=== PATIENT | female | born 1960 | race Caucasian/White ===

== ENCOUNTER 2021-05-07 19:48 | Inpatient (IN) | payer OTHER ==
[2021-05-07] VITALS (75 sets, daily range): O2SAT 77–95
[~2021-05-07] VITALS: Ht 170.2 cm; Wt 66.0 kg
--- NOTE | 2021-05-07 21:07 | NUR ---
PATIENT ARRIVED TO UNIT VIA AIR EVAC WITH 2 ATTENDANTS, TRANSFERRED TO BED WITH 5 PERSON ASSIST, PLACED ON FACILITY VENT AND ADJUSTMENTS BEING MADE BY RT WITH A JASEN ZURITA PRESENT AT BEDSIDE, ORDERS BEING PLACE NOTED PATIENT HAS LING CATHETER IN PLACE WELL OG IN PLACE AT 58 CM FROM LIP TO END OF TUBE, TWO PERIPHERAL IV'S PRESENT TO BILATERAL ARMS, NOTIFIED DR. HAYWOOD FOR INSERTION OF CENTRAL CAATHETER IV, CONSENT OBTAINED VIA PHONE FROM YAMIL, WITH SECOND NURSE WITNESS. ASSESSMENT COMPLETED, LABS OBTAINED AND MEDICATIONS INITIATED ORDERED
--- NOTE | 2021-05-07 22:00 | NUR ---
TITRATION OF SEDATION TO ACHIEVE RASS OF -2
[2021-05-07 22:08] LABS: HEMATOCRIT 37.2 % (37.0-47.0); HEMOGLOBIN 11.9 g/dl (12.5-16.0); MEAN CELL VOLUME 92 fl (80.0-100.0); MEAN CORPUSCULAR HEMOGLOBIN 29 pg (27.0-31.0); MEAN CORPUSCULAR HGB CONC 32 g/dl (33.0-37.0); PLATELET COUNT 162 K/mm3 (130-400); RED BLOOD COUNT 4.06 M/mm3 (4.10-5.30); REDCELL DISTRIBUTION WIDTH-CV 13.3 % (11.5-14.5)
[2021-05-07 22:17] LABS: INR 2.2 (0.8-3.0); PROTHROMBIN TIME 24.4 SECONDS (9.7-12.8)
[2021-05-07 22:19] LABS: PARTIAL THROMBOPLASTIN TIME 32.7 SECONDS (26.0-37.0)
[2021-05-07 22:20] LABS: ARTERIAL BLD GAS O2 SATURATION 93.8 % (92-100); ARTERIAL BLD GAS TCO2 CT 19.2; ARTERIAL BLOOD GAS BASE EXCESS -9.9 (-2-2); ARTERIAL BLOOD GAS HCO3 17.8 meq/L (22-26); ARTERIAL BLOOD GAS PCO2 46.1 mmHg (35-45); ARTERIAL BLOOD GAS PO2 84.7 mmHg (80-100); ARTERIAL BLOOD GAS pH 7.21 (7.35-7.45)
[2021-05-07 22:38] LABS: BAND 7 % (0-10); C-REACTIVE PROTEIN 25.9 mg/dL (0.00-0.50); CALCIUM 8.3 mg/dL (8.4-10.2); CREATININE, serum 0.8 mg/dL (0.57-1.11); LYMPHOCYTE 3 % (20.0-51.0); METAMYELOCYTE 3 % (0-0); NEUTROPHILS 86 % (42.0-75.2); PLATELET ESTIMATE NORMAL (NORMAL); POTASSIUM 4.6 mmol/L (3.5-4.5); TOTAL PROTEIN 5.9 gm/dL (6.2-8.1)
[2021-05-07 22:47] LABS: TROPONIN-I 0.14 ng/mL (0.00-0.033)
[2021-05-07] MEDS ORDERED: ZOCOR 40MG40 MG PO (23:49)
[2021-05-07] MEDS ORDERED: PROTONIX 40MG T40 MG PO (23:49)
[2021-05-08] VITALS (671 sets, daily range): BP systolic 82–118; BP diastolic 49–71; PULSE 69–102; TEMP 97–99.7; O2SAT 85–100
--- NOTE | 2021-05-08 00:30 | NUR ---
PATIENT PLACED IN PRONE POSITION WITH 5 PERSON ASSIST
--- NOTE | 2021-05-08 02:30 | NUR ---
CRITICAL TROPONIN LEVEL CALLED TO Belén ZURITA APRN WITH NO NEW ORDERS AT THIS TIME
[2021-05-08 03:21] LABS: ARTERIAL BLD GAS O2 SATURATION 95.6 % (92-100); ARTERIAL BLD GAS TCO2 CT 21.4; ARTERIAL BLOOD GAS BASE EXCESS -2.8 (-2-2); ARTERIAL BLOOD GAS HCO3 20.4 meq/L (22-26); ARTERIAL BLOOD GAS PCO2 31.1 mmHg (35-45); ARTERIAL BLOOD GAS PO2 74.3 mmHg (80-100); ARTERIAL BLOOD GAS pH 7.44 (7.35-7.45)
[2021-05-08 06:01] LABS: BASO % 0.2 % (0.0-2.0); GRAN # 14.5 (1.4-6.5); GRAN % 84.9 % (42.2-75.2); HEMOGLOBIN 10.4 g/dl (12.5-16.0); LYMPH # 0.8 (1.2-3.4); LYMPH % 4.6 % (20.0-51.0); MEAN CELL VOLUME 88 fl (80.0-100.0); MEAN CORPUSCULAR HEMOGLOBIN 30 pg (27.0-31.0); MEAN CORPUSCULAR HGB CONC 34 g/dl (33.0-37.0); MEAN PLATELET VOLUME 10.9 fl (7.4-10.4); MONO # 0.5 (0.1-0.6); MONO % 2.9 % (1.7-9.3); PLATELET COUNT 142 K/mm3 (130-400); RED BLOOD COUNT 3.49 M/mm3 (4.10-5.30); REDCELL DISTRIBUTION WIDTH-CV 13.5 % (11.5-14.5)
--- NOTE | 2021-05-08 06:23 | NUR ---
PATIENT RESTING COMFORTABLY AT THIS TIME, TITRATION OF SEDATION MEDICATIONS NEEDED, PATIENT EASILY AWAKENS, APPEARS TO UNDERSTAND WHAT IS BEING SAID TO HER, LABS OBTAINED ORDERED AND SENT FOR PROCESSING
[2021-05-08 06:33] LABS: CALCIUM 8.7 mg/dL (8.4-10.2); CREATININE, serum 0.65 mg/dL (0.57-1.11); MAGNESIUM 2.3 mg/dL (1.6-2.6); PHOSPHOROUS 3.3 mg/dL (2.3-4.7); POTASSIUM 4.6 mmol/L (3.5-4.5)
[2021-05-08 06:41] LABS: HEMATOCRIT 30.8 % (37.0-47.0)
[2021-05-08 06:45] LABS: TROPONIN-I 6 HR POST INITIAL 0.297 ng/mL (0.00-0.033)
--- NOTE | 2021-05-08 07:00 | NUR ---
Recieved report from LUCAS Lima - pt in the prone position, right side up.
--- NOTE | 2021-05-08 10:30 | NUR ---
Pt un-proned without difficulty with 4 total staff memebers
--- NOTE | 2021-05-08 11:50 | NUR ---
Pt's Raul and brother Hunter updated on telephone. MD Doris provided with Layne phone number: [phone]
[2021-05-08 12:41] LABS: ARTERIAL BLOOD GAS BASE EXCESS -3.1 (-2-2); ARTERIAL BLOOD GAS HCO3 25.2 meq/L (22-26); ARTERIAL BLOOD GAS PCO2 58.7 mmHg (35-45); ARTERIAL BLOOD GAS PO2 113.5 mmHg (80-100); ARTERIAL BLOOD GAS pH 7.25 (7.35-7.45)
--- NOTE | 2021-05-08 14:00 | NUR ---
1315: BP:85/50(60), RASS:-3 - -4, all sedation paused 1325: pt able to open eyes, follow all commands and move all extremities with equal strength, non-verbally pt able to communicate no pain and that room tempature is satisfactory. 1340: pt coughing, interrupting ventilations tipping low priorty ventilator alarms, SpO2 decreased from 96-98% to 90-91% - sedation resumed MD Doris notified - no futher orders
[2021-05-08 17:24] LABS: ARTERIAL BLD GAS O2 SATURATION 97.8 % (92-100); ARTERIAL BLD GAS TCO2 CT 23.9; ARTERIAL BLOOD GAS BASE EXCESS -0.9 (-2-2); ARTERIAL BLOOD GAS HCO3 22.8 meq/L (22-26); ARTERIAL BLOOD GAS PCO2 34.7 mmHg (35-45); ARTERIAL BLOOD GAS PO2 109.5 mmHg (80-100); ARTERIAL BLOOD GAS pH 7.44 (7.35-7.45)
[2021-05-09] VITALS (670 sets, daily range): BP systolic 104–122; BP diastolic 53–66; PULSE 60–87; TEMP 97.5–99; O2SAT 85–100
[2021-05-09 04:04] LABS: ARTERIAL BLD GAS O2 SATURATION 98.2 % (92-100); ARTERIAL BLD GAS TCO2 CT 24.8; ARTERIAL BLOOD GAS BASE EXCESS -0.4 (-2-2); ARTERIAL BLOOD GAS HCO3 23.7 meq/L (22-26); ARTERIAL BLOOD GAS PCO2 36.8 mmHg (35-45); ARTERIAL BLOOD GAS PO2 118.4 mmHg (80-100); ARTERIAL BLOOD GAS pH 7.43 (7.35-7.45)
[2021-05-09 04:37] LABS: HEMOGLOBIN 10.2 g/dl (12.5-16.0); MEAN CELL VOLUME 89 fl (80.0-100.0); MEAN CORPUSCULAR HEMOGLOBIN 29 pg (27.0-31.0); MEAN CORPUSCULAR HGB CONC 33 g/dl (33.0-37.0); MEAN PLATELET VOLUME 10.8 fl (7.4-10.4); RED BLOOD COUNT 3.48 M/mm3 (4.10-5.30); REDCELL DISTRIBUTION WIDTH-CV 13.4 % (11.5-14.5)
[2021-05-09 04:40] LABS: PLATELET COUNT 270 K/mm3 (130-400)
[2021-05-09 05:18] LABS: BAND 2 % (0-10); LYMPHOCYTE 5 % (20.0-51.0); METAMYELOCYTE 2 % (0-0); NEUTROPHILS 86 % (42.0-75.2)
[2021-05-09 05:19] LABS: PLATELET ESTIMATE NORMAL (NORMAL)
[2021-05-09 05:24] LABS: CALCIUM 8.7 mg/dL (8.4-10.2); CREATININE, serum 0.69 mg/dL (0.57-1.11); MAGNESIUM 2.2 mg/dL (1.6-2.6); PHOSPHOROUS 2.6 mg/dL (2.3-4.7); POTASSIUM 4.4 mmol/L (3.5-4.5)
--- NOTE | 2021-05-09 07:53 | NUR ---
ORAL CARE ATTEMPTED THROUGHOUT SHIFT, HOWEVER DIFFICULT WHILE PT PRONED.
--- NOTE | 2021-05-09 12:57 | NUR ---
Section Leader And Machine Setter contacted patient's , Raul (ph#[phone]) to complete initial intake as patient is currently intubated and is COVID positive. 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 Raul advised she works out of the [place] office. Patient does not have a current primary care physician. Patient obtains most of her medications from [facility] in [place] or [facility] in [place]. Patient does not use any DME and is independent with ADLS. Patient does not have Advance Directives and her is her legal next of kin. SW will continue to follow for any needs.
[2021-05-10] VITALS (739 sets, daily range): BP systolic 90–121; BP diastolic 43–63; PULSE 55–72; TEMP 97.2–99; O2SAT 89–100
[2021-05-10 04:27] LABS: ARTERIAL BLD GAS O2 SATURATION 97.2 % (92-100); ARTERIAL BLD GAS TCO2 CT 27.6; ARTERIAL BLOOD GAS BASE EXCESS 1.4 (-2-2); ARTERIAL BLOOD GAS HCO3 26.3 meq/L (22-26); ARTERIAL BLOOD GAS PCO2 42.5 mmHg (35-45); ARTERIAL BLOOD GAS PO2 98.2 mmHg (80-100); ARTERIAL BLOOD GAS pH 7.41 (7.35-7.45)
[2021-05-10 05:46] LABS: BASO # 0.1 (0.0-0.2); BASO % 0.3 % (0.0-2.0); EOS % 0.3 % (0-4.0); GRAN # 10.8 (1.4-6.5); GRAN % 73.8 % (42.2-75.2); LYMPH # 1.1 (1.2-3.4); LYMPH % 7.6 % (20.0-51.0); MEAN CORPUSCULAR HGB CONC 32 g/dl (33.0-37.0); MEAN PLATELET VOLUME 10.9 fl (7.4-10.4); MONO # 0.5 (0.1-0.6); MONO % 3.1 % (1.7-9.3); PLATELET COUNT 247 K/mm3 (130-400); RED BLOOD COUNT 2.91 M/mm3 (4.10-5.30); REDCELL DISTRIBUTION WIDTH-CV 13.5 % (11.5-14.5)
[2021-05-10 05:49] LABS: HEMATOCRIT 27.2 % (37.0-47.0); HEMOGLOBIN 8.8 g/dl (12.5-16.0); MEAN CELL VOLUME 94 fl (80.0-100.0); MEAN CORPUSCULAR HEMOGLOBIN 30 pg (27.0-31.0)
[2021-05-10 06:02] LABS: C-REACTIVE PROTEIN 5.1 mg/dL (0.00-0.50); CALCIUM 7.5 mg/dL (8.4-10.2); CREATININE, serum 0.55 mg/dL (0.57-1.11); PHOSPHOROUS 1.9 mg/dL (2.3-4.7); POTASSIUM 3.8 mmol/L (3.5-4.5)
--- NOTE | 2021-05-10 06:09 | NUR ---
SEDATION VACATION NOT NEEDED PATIENT WAKENS EASILY AND ABLE TO NOD HEAD APPROPRIATELY MAKE MEANINGFUL GESTURES, FOLLOW COMMANDS AND MOVE ALL EXTREMITIE
--- NOTE | 2021-05-10 09:23 | NUR ---
ASSISTED RN AND PT WITH UN PRONING PATIENT, POST UNPRONE PATIENT ET STILL IN PLACE AND BILATERAL BREATH SOUNDS SEEN.
--- NOTE | 2021-05-10 16:34 | NUR ---
Sedation Vacation: pt able to open eyes, move all extremities and follow all commands - pt fairly oriented despite situation - pt nodding head in agreement with plan of care and nonverbally denies any needs
[2021-05-11] VITALS (697 sets, daily range): BP systolic 98–123; BP diastolic 47–65; PULSE 49–69; TEMP 97.6–98.8; O2SAT 64–100
[2021-05-11 04:26] LABS: MEAN CELL VOLUME 92 fl (80.0-100.0); MEAN CORPUSCULAR HGB CONC 32 g/dl (33.0-37.0); MEAN PLATELET VOLUME 10.8 fl (7.4-10.4); PLATELET COUNT 268 K/mm3 (130-400); RED BLOOD COUNT 3.11 M/mm3 (4.10-5.30); REDCELL DISTRIBUTION WIDTH-CV 13.4 % (11.5-14.5)
[2021-05-11 04:39] LABS: HEMATOCRIT 28.7 % (37.0-47.0); HEMOGLOBIN 9.2 g/dl (12.5-16.0); MEAN CORPUSCULAR HEMOGLOBIN 30 pg (27.0-31.0)
[2021-05-11 04:49] LABS: C-REACTIVE PROTEIN 4.9 mg/dL (0.00-0.50); MAGNESIUM 2.2 mg/dL (1.6-2.6); PHOSPHOROUS 2.2 mg/dL (2.3-4.7)
[2021-05-11 05:03] LABS: ALBUMIN 1.7 gm/dL (3.5-5.0); BILIRUBIN,TOTAL 0.4 mg/dL (0.2-1.2); CREATININE, serum 0.54 mg/dL (0.57-1.11); POTASSIUM 4.2 mmol/L (3.5-4.5); TOTAL PROTEIN 5.2 gm/dL (6.2-8.1)
[2021-05-11 05:28] LABS: BAND 3 % (0-10); LYMPHOCYTE 10 % (20.0-51.0); METAMYELOCYTE 3 % (0-0); NEUTROPHILS 80 % (42.0-75.2)
[2021-05-11 05:29] LABS: PLATELET ESTIMATE NORMAL (NORMAL)
--- NOTE | 2021-05-11 05:33 | NUR ---
PATIENT EASILY AWAKENS ON CURRENT AMOUNT OF SEDATION
[2021-05-11 07:15] LABS: ARTERIAL BLD GAS O2 SATURATION 96.7 % (92-100); ARTERIAL BLD GAS TCO2 CT 32.3; ARTERIAL BLOOD GAS BASE EXCESS 6.1 (-2-2); ARTERIAL BLOOD GAS HCO3 30.9 meq/L (22-26); ARTERIAL BLOOD GAS PO2 91.8 mmHg (80-100); ARTERIAL BLOOD GAS pH 7.45 (7.35-7.45)
--- NOTE | 2021-05-11 07:45 | NUR ---
Patient resting comfortably. Arouses easily to speech and able to follow basic commands upon request. Will continue to monitor.
--- NOTE | 2021-05-11 10:33 | NUR ---
ASSISTED TRANSPORTING PATIENT TO SAFE DEPOSIT CLERK AT 1015, ET STILL 23@TEETH AND RECEIVING ADEQUATE VT.
--- NOTE | 2021-05-11 11:15 | NUR ---
Returned from sleep lab technologist; VS stable. Right radial site assessed and no complications observed at this time.
--- NOTE | 2021-05-11 11:28 | NUR ---
ASSISTED CAP MACHINE OPERATOR WITH TRANSPORTING PATIENT BACK TO THEIR ROOM.
--- NOTE | 2021-05-11 13:45 | NUR ---
Approximately 10 minutes after removing 3 ml of air from TR band. Slight amount of new blody drainage was noted around the site. Pulse +2 and wrist and arm soft to touch with no signs of a hematoma formation. 3 ml placed back in TR band. Will continue to monitor.
--- NOTE | 2021-05-11 17:30 | NUR ---
Sedation vacation not performed due to being proned.
--- NOTE | 2021-05-11 17:30 | NUR ---
Patient re-proned; tolerated well. Will continue to monitor.
--- NOTE | 2021-05-11 22:38 | NUR ---
PATIENT RESTING IN BED, TR BAND DECREASED BY 1 ML WHICH DEFLATED CUFF, NO ADVERSE REACTION NOTED, NO BLLEDING OR HEMATOMA NOTED, TR BAND REMOVED, AND BANDAID APPLIED PER ORDER, WILL CONTINUE TO MONITOR, PT IS INTUBATED AND SEDATED AT THIS TIME
[2021-05-12] VITALS (655 sets, daily range): BP systolic 102–111; BP diastolic 50–62; PULSE 51–60; TEMP 97.6–99.6; O2SAT 83–100
[2021-05-12 04:45] LABS: ARTERIAL BLD GAS O2 SATURATION 96.8 % (92-100); ARTERIAL BLD GAS TCO2 CT 30.3; ARTERIAL BLOOD GAS BASE EXCESS 5.1 (-2-2); ARTERIAL BLOOD GAS HCO3 29.1 meq/L (22-26); ARTERIAL BLOOD GAS PCO2 40.6 mmHg (35-45); ARTERIAL BLOOD GAS PO2 94.5 mmHg (80-100); ARTERIAL BLOOD GAS pH 7.47 (7.35-7.45)
[2021-05-12 05:37] LABS: MEAN CELL VOLUME 92 fl (80.0-100.0); MEAN CORPUSCULAR HGB CONC 32 g/dl (33.0-37.0); MEAN PLATELET VOLUME 11.1 fl (7.4-10.4); PLATELET COUNT 263 K/mm3 (130-400); RED BLOOD COUNT 2.91 M/mm3 (4.10-5.30); REDCELL DISTRIBUTION WIDTH-CV 13.3 % (11.5-14.5)
[2021-05-12 05:40] LABS: HEMATOCRIT 26.9 % (37.0-47.0); HEMOGLOBIN 8.7 g/dl (12.5-16.0); MEAN CORPUSCULAR HEMOGLOBIN 30 pg (27.0-31.0)
[2021-05-12 05:50] LABS: CALCIUM 7.7 mg/dL (8.4-10.2); CREATININE, serum 0.52 mg/dL (0.57-1.11); MAGNESIUM 2.1 mg/dL (1.6-2.6); PHOSPHOROUS 2.7 mg/dL (2.3-4.7); POTASSIUM 4.2 mmol/L (3.5-4.5)
[2021-05-12 05:58] LABS: BAND 3 % (0-10); EOSINOPHIL 1 % (0-4); LYMPHOCYTE 8 % (20.0-51.0); METAMYELOCYTE 3 % (0-0); MYELOCYTE 7 % (0-0); NEUTROPHILS 76 % (42.0-75.2); PLATELET ESTIMATE NORMAL (NORMAL)
[2021-05-12 05:59] LABS: HYPOCHROMIA 2+
--- NOTE | 2021-05-12 06:00 | NUR ---
PATIENT AWAKENS EASILY TO MINIMAL STIMULI ON CURRENT SEDATION NO NEED FOR SEDATION VACATION
--- NOTE | 2021-05-12 06:05 | NUR ---
PATIENT CONTINUES WITH NO ADVERSES REACTIONS POST CARDIAC CATH, RT RADIAL ACCESS SITE REMAINS UNCHANGED WITH NO ACTIVE BLEEDING NO EDEMA AND NO NOTED HEMATOMA, WILL CONTINUE TO MONITOR
--- NOTE | 2021-05-12 07:30 | NUR ---
REPORT RECEIVED FROM LUCAS GARCIA
--- NOTE | 2021-05-12 10:15 | NUR ---
, YAMIL, GIVEN UPDATE AND QUESTIONS ANSWERED.
--- NOTE | 2021-05-12 11:43 | NUR ---
Asp Developer spoke with patient's spouse, Raul who would like to video chat with patient if possible. SW contacted [place], ICU Beamer Helper and provided Raul's email ([email or web address]).
--- NOTE | 2021-05-12 15:28 | NUR ---
REPORT GIVEN TO LUCAS MICHEL
--- NOTE | 2021-05-12 15:30 | NUR ---
ASSUMED CARE FROM LUCAS HERNANDEZ.
--- NOTE | 2021-05-12 17:00 | NUR ---
PT PRONED AT THIS TIME WITH RN X2 AND RT. PT TOLERATED WELL. VSS. NO CHANGES IN VENT SETTINGS. OGT AND ETT REMAIN AT SAME PLACES BEFORE.
[2021-05-13] VITALS (628 sets, daily range): BP systolic 98–120; BP diastolic 52–65; PULSE 48–61; TEMP 97.8–98.8; O2SAT 80–100
--- NOTE | 2021-05-13 05:00 | NUR ---
No sedation vacation at this time. Patient awake and moving self on bed. Encouraged to relax and lay head down. Follows commands for the most part, does need a lot of encouragement to lay head down but eventually will. Will monitor for increase of sedation need
[2021-05-13 05:32] LABS: ARTERIAL BLD GAS O2 SATURATION 97.7 % (92-100); ARTERIAL BLD GAS TCO2 CT 31.7; ARTERIAL BLOOD GAS BASE EXCESS 5.9 (-2-2); ARTERIAL BLOOD GAS HCO3 30.4 meq/L (22-26); ARTERIAL BLOOD GAS PO2 101.7 mmHg (80-100); ARTERIAL BLOOD GAS pH 7.46 (7.35-7.45)
[2021-05-13 06:05] LABS: MEAN CELL VOLUME 93 fl (80.0-100.0); MEAN CORPUSCULAR HGB CONC 32 g/dl (33.0-37.0); MEAN PLATELET VOLUME 11.2 fl (7.4-10.4); PLATELET COUNT 252 K/mm3 (130-400); RED BLOOD COUNT 2.82 M/mm3 (4.10-5.30); REDCELL DISTRIBUTION WIDTH-CV 13.2 % (11.5-14.5)
[2021-05-13 06:12] LABS: HEMATOCRIT 26.1 % (37.0-47.0); HEMOGLOBIN 8.4 g/dl (12.5-16.0); MEAN CORPUSCULAR HEMOGLOBIN 30 pg (27.0-31.0)
[2021-05-13 06:24] LABS: ALBUMIN 1.7 gm/dL (3.5-5.0); BILIRUBIN,TOTAL 0.4 mg/dL (0.2-1.2); CALCIUM 7.9 mg/dL (8.4-10.2); CREATININE, serum 0.52 mg/dL (0.57-1.11); POTASSIUM 4.1 mmol/L (3.5-4.5); TOTAL PROTEIN 5.2 gm/dL (6.2-8.1)
[2021-05-13 07:21] LABS: BAND 3 % (0-10); LYMPHOCYTE 14 % (20.0-51.0); METAMYELOCYTE 1 % (0-0); MYELOCYTE 3 % (0-0); NEUTROPHILS 77 % (42.0-75.2)
[2021-05-13 07:24] LABS: PLATELET ESTIMATE NORMAL (NORMAL)
[2021-05-13 12:10] LABS: ARTERIAL BLD GAS O2 SATURATION 95.1 % (92-100); ARTERIAL BLOOD GAS HCO3 29.6 meq/L (22-26); ARTERIAL BLOOD GAS PCO2 44.2 mmHg (35-45); ARTERIAL BLOOD GAS PO2 74.7 mmHg (80-100); ARTERIAL BLOOD GAS pH 7.44 (7.35-7.45)
[2021-05-14] VITALS (656 sets, daily range): BP systolic 106–118; BP diastolic 56–64; PULSE 49–56; TEMP 98–99; O2SAT 80–100
[2021-05-14 04:49] LABS: ARTERIAL BLD GAS O2 SATURATION 91.8 % (92-100); ARTERIAL BLD GAS TCO2 CT 33.2; ARTERIAL BLOOD GAS BASE EXCESS 6.8 (-2-2); ARTERIAL BLOOD GAS HCO3 31.8 meq/L (22-26); ARTERIAL BLOOD GAS PCO2 47.6 mmHg (35-45); ARTERIAL BLOOD GAS pH 7.44 (7.35-7.45)
[2021-05-14 06:07] LABS: PATHOLOGY DIFF REVIEW OK +
--- NOTE | 2021-05-14 06:11 | NUR ---
DID NOT DO SEDATION VACATION THIS MORNING PATIENT IS AWAKE ENOUGH TO RESPOND TO QUESTIONS AND FOLLOW COMMANDS
[2021-05-14 06:17] LABS: MEAN CELL VOLUME 94 fl (80.0-100.0); MEAN CORPUSCULAR HGB CONC 32 g/dl (33.0-37.0); MEAN PLATELET VOLUME 11.5 fl (7.4-10.4); PLATELET COUNT 261 K/mm3 (130-400); RED BLOOD COUNT 2.68 M/mm3 (4.10-5.30); REDCELL DISTRIBUTION WIDTH-CV 13.2 % (11.5-14.5)
[2021-05-14 06:26] LABS: HEMATOCRIT 25.2 % (37.0-47.0); MEAN CORPUSCULAR HEMOGLOBIN 30 pg (27.0-31.0)
[2021-05-14 06:32] LABS: CALCIUM 7.8 mg/dL (8.4-10.2); CREATININE, serum 0.53 mg/dL (0.57-1.11); POTASSIUM 4.1 mmol/L (3.5-4.5)
--- NOTE | 2021-05-14 06:51 | NUR ---
PATIENT DID WELL OVERNIGHT, HR SLIGHTLY BRADYCARDIC AT APPROX 50 BPM, BP IN THE 110-120 SYSTOLIC AND 50-60 DIASTOLIC RANGE AND O2 SAT STAYED CONSISTENLY ABOVE 90% AND CURRENTLY SHE IS RESTING COMFORTABLY AND ABLE TO RESPOND TO COMMANDS.
--- NOTE | 2021-05-14 07:00 | NUR ---
pt is intubated and sedated. will conitnue to monitor.
[2021-05-14 07:49] LABS: EOSINOPHIL 1 % (0-4); LYMPHOCYTE 8 % (20.0-51.0); MYELOCYTE 6 % (0-0)
[2021-05-14 07:52] LABS: HYPOCHROMIA 2+
[2021-05-14 07:53] LABS: PLATELET ESTIMATE NORMAL (NORMAL)
[2021-05-14 07:55] LABS: METAMYELOCYTE 5 % (0-0)
[2021-05-14 07:56] LABS: BAND 5 % (0-10); NEUTROPHILS 70 % (42.0-75.2)
--- NOTE | 2021-05-14 13:12 | NUR ---
SPOKE WITH AND OK TO TAKE OUT OF AIRBORNE ISOLATION FOR COVID. STILL PENDING CDIFF TEST AND WILL CONITNUE CONTACT UNTIL TEST BACK.
[2021-05-14 13:36] LABS: CLOSTRIDIUM DIFF A/B NEG; CLOSTRIDIUM DIFF A/B INTERP No C.diff present
--- NOTE | 2021-05-14 15:26 | NUR ---
VIDEO CHAT WITH PT AND FAMILY. FAMIY UPDATE ON PT MOVING TO ICU 7 AND OUT OF ISOLATION.
--- NOTE | 2021-05-14 16:18 | NUR ---
PT MOVED OUT OF ISOLATION TO ICU ROOM 7. PT PLACE ON NEW BED AND VENT. MONITORS CHANGED. ALL LINES AND PUMPS CLEANED. PT PLACE IN PRONE POSITION PER ORDER. WILL CONTINUE TO [facility].
--- NOTE | 2021-05-14 17:00 | NUR ---
PT IS PRONED. PT ABLE TO OPEN EYES AND FOLLOW SOME COMMANDS. NO SEDATION VACATION AT THIS TIME. WILL CONTINUE TO MONTIOR.
--- NOTE | 2021-05-14 18:09 | NUR ---
REPORT GIVEN TO ESSIE ZAVALA TO ASSUME CARE.
[2021-05-15] VITALS (730 sets, daily range): BP systolic 88–121; BP diastolic 39–66; PULSE 45–62; TEMP 98.1–99; O2SAT 80–100
--- NOTE | 2021-05-15 00:30 | NUR ---
CHANGED DRESSING ON CENTRAL LINE SITE WAS BLEEDING AND SEEPED THROUGH THE TEGADERM AND GAUZE PADS THAT WERE PLACED OVER IT. THE BLEEDING HAS SINCE STOPPED.
[2021-05-15 03:54] LABS: ARTERIAL BLD GAS TCO2 CT 30.4; ARTERIAL BLOOD GAS BASE EXCESS 4.8 (-2-2); ARTERIAL BLOOD GAS HCO3 29.1 meq/L (22-26); ARTERIAL BLOOD GAS PO2 111.1 mmHg (80-100); ARTERIAL BLOOD GAS pH 7.46 (7.35-7.45)
--- NOTE | 2021-05-15 04:00 | NUR ---
INCREASED VERSED FROM 5 TO 6 AND GAVE THREE BOLUSES OVERNIGHT, SHE WOULD GET VERY AGITATED AT TIMES AND TRY TO LIFT HER HEAD AND TURN IT; RT WAS CONCERNED THAT THE ET TUBE WOULD BECOME COMPROMISED AND EXPRESSED THAT THEY FELT THE SEDATION SHOULD BE INCREASED.
[2021-05-15 05:45] LABS: MEAN CELL VOLUME 93 fl (80.0-100.0); MEAN CORPUSCULAR HGB CONC 32 g/dl (33.0-37.0); MEAN PLATELET VOLUME 10.7 fl (7.4-10.4); PLATELET COUNT 308 K/mm3 (130-400); RED BLOOD COUNT 2.92 M/mm3 (4.10-5.30)
[2021-05-15 05:57] LABS: HEMOGLOBIN 8.5 g/dl (12.5-16.0); MEAN CORPUSCULAR HEMOGLOBIN 29 pg (27.0-31.0)
[2021-05-15 06:15] LABS: ALBUMIN 1.9 gm/dL (3.5-5.0); BILIRUBIN,TOTAL 0.4 mg/dL (0.2-1.2); CALCIUM 8.1 mg/dL (8.4-10.2); CREATININE, serum 0.51 mg/dL (0.57-1.11); POTASSIUM 4.1 mmol/L (3.5-4.5); TOTAL PROTEIN 5.5 gm/dL (6.2-8.1)
--- NOTE | 2021-05-15 06:23 | NUR ---
DID NOT ATTEMPT SEDATION VACATION, PATIENT WAS RESTLESS AND ALREADY ABLE TO RESPOND TO COMMANDS AND REPLY APPROPRIATELY.
[2021-05-15 06:26] LABS: BAND 4 % (0-10); LYMPHOCYTE 7 % (20.0-51.0); METAMYELOCYTE 1 % (0-0); NEUTROPHILS 84 % (42.0-75.2)
[2021-05-15 06:27] LABS: PLATELET ESTIMATE NORMAL (NORMAL)
--- NOTE | 2021-05-15 07:00 | NUR ---
REPORTED OFF TO LUCAS MYRICK. PATIENT CURRENTLY STILL PRONED AND RESTING BUT IS EASILY AROUSED.
--- NOTE | 2021-05-15 10:39 | NUR ---
AND PT'S YAMIL BEDSIDE. PT CONDITION AND PLAN DISCUSSED WITH . ALL QUESTIONS ANSWERED. WILL COINTNUE TO NADJA.
--- NOTE | 2021-05-15 11:37 | NUR ---
Pt's wedding ring removed and given to .
--- NOTE | 2021-05-15 17:00 | NUR ---
PT PRONED AT THIS TIME. PT OPENES EYES TO VOICE. NO SEDATION VACATION AT THIS TIME. WILL CONTINUE TO MONTIOR.
[2021-05-16] VITALS (1400 sets, daily range): BP systolic 97–122; BP diastolic 50–85; PULSE 49–74; TEMP 97.5–98.7; O2SAT 79–100
[2021-05-16 03:28] LABS: ARTERIAL BLD GAS O2 SATURATION 97.8 % (92-100); ARTERIAL BLD GAS TCO2 CT 34.4; ARTERIAL BLOOD GAS BASE EXCESS 8.8 (-2-2); ARTERIAL BLOOD GAS HCO3 33.1 meq/L (22-26); ARTERIAL BLOOD GAS PCO2 44.3 mmHg (35-45); ARTERIAL BLOOD GAS PO2 105.8 mmHg (80-100); ARTERIAL BLOOD GAS pH 7.49 (7.35-7.45)
[2021-05-16 04:29] LABS: BASO # 0.1 (0.0-0.2); BASO % 0.4 % (0.0-2.0); EOS # 0.1 (0.0-0.7); EOS % 0.2 % (0-4.0); GRAN # 18.5 (1.4-6.5); GRAN % 72.6 % (42.2-75.2); LYMPH # 2.2 (1.2-3.4); LYMPH % 8.6 % (20.0-51.0); MEAN CELL VOLUME 93 fl (80.0-100.0); MEAN CORPUSCULAR HGB CONC 32 g/dl (33.0-37.0); MEAN PLATELET VOLUME 10.7 fl (7.4-10.4); MONO # 1.6 (0.1-0.6); MONO % 6.3 % (1.7-9.3); PLATELET COUNT 319 K/mm3 (130-400); RED BLOOD COUNT 2.87 M/mm3 (4.10-5.30); REDCELL DISTRIBUTION WIDTH-CV 13.1 % (11.5-14.5)
[2021-05-16 04:34] LABS: HEMATOCRIT 26.7 % (37.0-47.0); HEMOGLOBIN 8.5 g/dl (12.5-16.0); MEAN CORPUSCULAR HEMOGLOBIN 30 pg (27.0-31.0)
[2021-05-16 04:45] LABS: CALCIUM 8.1 mg/dL (8.4-10.2); CREATININE, serum 0.54 mg/dL (0.57-1.11); POTASSIUM 3.7 mmol/L (3.5-4.5)
[2021-05-16 04:47] LABS: PRE ALBUMIN 30.8 mg/dL (17.6-36.0)
--- NOTE | 2021-05-16 06:00 | NUR ---
Recieved notice of critical lab WBC of 25.5. since WBC was less than WBC 24 hours ago no MD notified. STAFF NOTIFED AT NURSES REPORT
[2021-05-16 08:14] LABS: PATHOLOGY DIFF REVIEW OK
--- NOTE | 2021-05-16 10:24 | NUR ---
PER DR LOMAS WE WILL NOT PRONE PATIENT TONIGHT; WILL PASS ALONG IN REPORT TO NURSE TONIGHT
--- NOTE | 2021-05-16 14:00 | NUR ---
CENTRAL LINE DRESSING CHANGE PERFORMED PATIENT WAS BLEEDING AT THE SITE; ORDER PLACED FOR PICC LINE TO BE PLACED.
--- NOTE | 2021-05-16 18:11 | NUR ---
DID NOT DO A SEDATION VACATION TODAY PATIENT WAS AGITATED AND PUSHING HERSELF OFF OF THE BED, WHICH LED TO AN INCREASE IN SEDATION. CAME BACK DOWN TO AN APPROPRIATE LEVEL WHERE SHE IS RESPONDING APPROPRATELY TO STIMULI.
--- NOTE | 2021-05-16 19:19 | NUR ---
REPORT RECEIVED FROM ESSIE ZAVALA. GTT'S ASSESSED. PT INTUBATED AND SEDATED. TOLERATING VENT. VSS.
[2021-05-17] VITALS (918 sets, daily range): BP systolic 103–123; BP diastolic 50–61; PULSE 54–67; TEMP 97.9–99.1; O2SAT 73–100
--- NOTE | 2021-05-17 00:33 | NUR ---
PT BATHED AND DESAT TO 88% WITH ACITIVTY. NOTIFIED RT. RT AT BEDSIDE.
--- NOTE | 2021-05-17 02:09 | NUR ---
PT REPOSITIONED IN BED AND DESAT TO 86-67%. SUCTIONED ETT WITH MINIMAL SPUTUM. NOTIFIED RT. RT AT BEDSIDE.
[2021-05-17 03:40] LABS: ARTERIAL BLD GAS O2 SATURATION 97.3 % (92-100); ARTERIAL BLD GAS TCO2 CT 26.2; ARTERIAL BLOOD GAS BASE EXCESS 0.6 (-2-2); ARTERIAL BLOOD GAS PCO2 38.8 mmHg (35-45); ARTERIAL BLOOD GAS PO2 97.9 mmHg (80-100); ARTERIAL BLOOD GAS pH 7.43 (7.35-7.45)
[2021-05-17 04:08] LABS: MEAN CELL VOLUME 93 fl (80.0-100.0); MEAN CORPUSCULAR HGB CONC 31 g/dl (33.0-37.0); MEAN PLATELET VOLUME 10.9 fl (7.4-10.4); PLATELET COUNT 277 K/mm3 (130-400); RED BLOOD COUNT 2.73 M/mm3 (4.10-5.30); REDCELL DISTRIBUTION WIDTH-CV 13.2 % (11.5-14.5)
[2021-05-17 04:13] LABS: HEMATOCRIT 25.3 % (37.0-47.0); HEMOGLOBIN 7.9 g/dl (12.5-16.0); MEAN CORPUSCULAR HEMOGLOBIN 29 pg (27.0-31.0)
[2021-05-17 04:26] LABS: CALCIUM 8.2 mg/dL (8.4-10.2); CREATININE, serum 0.55 mg/dL (0.57-1.11); POTASSIUM 3.9 mmol/L (3.5-4.5)
[2021-05-17 04:47] LABS: BAND 2 % (0-10); EOSINOPHIL 1 % (0-4); LYMPHOCYTE 5 % (20.0-51.0); METAMYELOCYTE 1 % (0-0); NEUTROPHILS 86 % (42.0-75.2); PLATELET ESTIMATE NORMAL (NORMAL)
--- NOTE | 2021-05-17 05:03 | NUR ---
SEDATION OFF FOR LAB DRAW, PT FOLLOWING COMMANDS PRIOR TO SEDATION OFF. PT BECAME AGITATED AND RESTLESS, PUSHING OFF BED. SEDATION RESTARTED AT PREVIOUS RATES.
--- NOTE | 2021-05-17 06:44 | NUR ---
CENTRAL LINE DRESSING CHANGED BLEEDING AT SITE.
--- NOTE | 2021-05-17 10:35 | NUR ---
AILYN spoke with Dr. Sears; discussed possible referral to [facility]. He is ok to do so. This SW faxed referral to [facility]
--- NOTE | 2021-05-17 11:38 | NUR ---
AILYN espinald call from Yaniv at [facility] - referral was received. Anticipate trach & peg next Sunday; Yaniv to follow up and this worker to send updates.
--- NOTE | 2021-05-17 15:24 | NUR ---
AILYN spoke with patient's , Raul, to inform him of referral to [facility]. He is very satisfied with patient going to an LTAC and he has no preference which one she goes to. He shared that he has been preparing for her return home by installing grab bars, getting her wheelchair ready, and railings to enter home. AILYN informed him that he may get a call from Yaniv at [facility]. AILYN will continue to follow patient's needs for discharging.
--- NOTE | 2021-05-17 20:53 | NUR ---
WENT DOWN ON PATIENTS SEDATION THIS MORNING WHEN A CPAP TRIAL WAS PERFORMED. PATIENT RESPONDED APPROPRIATELY TO VERBAL COMMANDS.
--- NOTE | 2021-05-17 21:05 | NUR ---
PER DR. LOMAS, DECREASE SEDATION TO ATTEMPT CPAP TRIAL
--- NOTE | 2021-05-17 21:10 | NUR ---
PER DR. LOMAS
--- NOTE | 2021-05-17 21:10 | NUR ---
PER DR. LOMAS
--- NOTE | 2021-05-17 21:20 | NUR ---
PATIENT HAD PICC LINE PLACED TODAY SUBCLAVIAN LINE HAD BLOOD LEAKING FROM THE INSERTION SITE. PATIENT TOLERATED REMOVAL WELL, AND THE SITE WAS COVERED WITH GAUZE AND TEGADERM, AND WAS CLEAN, DRY, AND INTACT WITH NO DRAINAGE.
--- NOTE | 2021-05-17 21:30 | NUR ---
When repositioning patient's legs after repositioning up in bed, noted to have rectal tubing laying between legs with bulb inflated. Bed bath down, rectal tube replaced and skin inspected for injury. None noted at this time and tolerates replacement without difficulty.
[2021-05-18] VITALS (685 sets, daily range): BP systolic 101–126; BP diastolic 57–70; PULSE 50–83; TEMP 96.5–98.6; O2SAT 91–100
[2021-05-18 04:12] LABS: ARTERIAL BLD GAS O2 SATURATION 96.9 % (92-100); ARTERIAL BLOOD GAS BASE EXCESS 3.2 (-2-2); ARTERIAL BLOOD GAS HCO3 26.9 meq/L (22-26); ARTERIAL BLOOD GAS PCO2 37.5 mmHg (35-45); ARTERIAL BLOOD GAS PO2 84.9 mmHg (80-100); ARTERIAL BLOOD GAS pH 7.47 (7.35-7.45)
[2021-05-18 05:11] LABS: MEAN CELL VOLUME 91 fl (80.0-100.0); MEAN CORPUSCULAR HGB CONC 32 g/dl (33.0-37.0); MEAN PLATELET VOLUME 10.7 fl (7.4-10.4); PLATELET COUNT 308 K/mm3 (130-400); RED BLOOD COUNT 2.92 M/mm3 (4.10-5.30); REDCELL DISTRIBUTION WIDTH-CV 13.2 % (11.5-14.5)
[2021-05-18 05:16] LABS: HEMATOCRIT 26.6 % (37.0-47.0); HEMOGLOBIN 8.4 g/dl (12.5-16.0); MEAN CORPUSCULAR HEMOGLOBIN 29 pg (27.0-31.0)
[2021-05-18 05:24] LABS: CALCIUM 8.6 mg/dL (8.4-10.2); CREATININE, serum 0.53 mg/dL (0.57-1.11); POTASSIUM 3.9 mmol/L (3.5-4.5)
--- NOTE | 2021-05-18 13:53 | NUR ---
Nutrition Educator faxed patient updated progress reports to [facility].
--- NOTE | 2021-05-18 20:07 | NUR ---
PATIENT DID SEDATION VACATION THIS MORNING WHEN CPAP TRIAL WAS BEING PERFORMED; PATIENT WAS ALSO ALERT AND ABLE TO FOLLOW COMMANDS AND ANSWER QUESTIONS APPROPRIATELY MOST OF THE DAY UNTIL SEDATION WAS INCREASED SHE BECAME INCREASINGLY AGITATED.
--- NOTE | 2021-05-18 20:38 | NUR ---
PATIENT DID WELL TODAY ALTHOUGH WAS A LITTLE RESTLESS AT TIMES THROUGHOUT THE DAY AND TITRATED HER DRIPS ACCORDINGLY. CHANGED OUT CAPS ON PICC TODAY THEY BECAME LOOSE AND WERE LEAKING. PATIENT RESTRAINTS SHOULD BE MONITORED THROUGHOUT THE DAY SHE WIGGLES HER ARMS A LOT AND THEY LOOSEN UP ENOUGH FOR HER TO MOVE HER HANDS TOWARDS HER ET TUBE; THIS WAS PASSED ALONG IN REPORT TONIGHT TO LUCAS MARCUS.
[2021-05-19] VITALS (654 sets, daily range): BP systolic 91–133; BP diastolic 53–70; PULSE 60–103; TEMP 97.7–98.7; O2SAT 88–100
--- NOTE | 2021-05-19 04:18 | NUR ---
Sedation vacation at this time. Patient awake and restless but able to calm self with help from RN. CPAP trial started per RT and process explained to patient. Patient tearful, but does well with calming self with help from RN. TV on to help distract.
[2021-05-19 05:26] LABS: MEAN CELL VOLUME 91 fl (80.0-100.0); MEAN CORPUSCULAR HGB CONC 33 g/dl (33.0-37.0); MEAN PLATELET VOLUME 10.9 fl (7.4-10.4); PLATELET COUNT 355 K/mm3 (130-400); RED BLOOD COUNT 3.21 M/mm3 (4.10-5.30); REDCELL DISTRIBUTION WIDTH-CV 13.4 % (11.5-14.5)
[2021-05-19 05:42] LABS: ALBUMIN 2.3 gm/dL (3.5-5.0); BILIRUBIN,TOTAL 0.5 mg/dL (0.2-1.2); CREATININE, serum 0.61 mg/dL (0.57-1.11); MAGNESIUM 2.2 mg/dL (1.6-2.6); POTASSIUM 3.5 mmol/L (3.5-4.5); TOTAL PROTEIN 6.8 gm/dL (6.2-8.1)
[2021-05-19 05:43] LABS: ARTERIAL BLOOD GAS PO2 71.9 mmHg (80-100); ARTERIAL BLOOD GAS pH 7.48 (7.35-7.45)
[2021-05-19 05:44] LABS: ARTERIAL BLD GAS O2 SATURATION 94.9 % (92-100); ARTERIAL BLOOD GAS BASE EXCESS -0.7 (-2-2); ARTERIAL BLOOD GAS HCO3 22.5 meq/L (22-26)
[2021-05-19 06:31] LABS: HEMATOCRIT 29.3 % (37.0-47.0); HEMOGLOBIN 9.6 g/dl (12.5-16.0); MEAN CORPUSCULAR HEMOGLOBIN 30 pg (27.0-31.0)
[2021-05-19 07:02] LABS: BASOPHIL 1 % (0-2); EOSINOPHIL 1 % (0-4); LYMPHOCYTE 12 % (20.0-51.0); METAMYELOCYTE 5 % (0-0); NEUTROPHILS 76 % (42.0-75.2)
[2021-05-19 07:06] LABS: PLATELET ESTIMATE NORMAL (NORMAL)
[2021-05-19 07:07] LABS: HYPOCHROMIA 2+
[2021-05-19 08:56] LABS: ARTERIAL BLD GAS O2 SATURATION 91.2 % (92-100); ARTERIAL BLD GAS TCO2 CT 23.7; ARTERIAL BLOOD GAS BASE EXCESS 1.1 (-2-2); ARTERIAL BLOOD GAS HCO3 22.8 meq/L (22-26); ARTERIAL BLOOD GAS PO2 53.6 mmHg (80-100); ARTERIAL BLOOD GAS pH 7.55 (7.35-7.45)
--- NOTE | 2021-05-19 09:00 | NUR ---
Ventilator weaning trial stopped per MD Orion who is at bedside. Sedation resumed at pre-weaning trial dose per MD Orion. Raul () called and updated on plan for repeat weaning trial this evening
--- NOTE | 2021-05-19 10:04 | NUR ---
Fur Matcher met with Yaniv from [facility]; he recd patients updates; Per delisa Alejandre and eitan Sunday but SW will continue to update [facility] on patients progress
[2021-05-20] VITALS (681 sets, daily range): BP systolic 97–138; BP diastolic 58–86; PULSE 62–108; TEMP 97.6–98.6; O2SAT 86–100
[2021-05-20 03:56] LABS: ARTERIAL BLD GAS O2 SATURATION 94.4 % (92-100); ARTERIAL BLOOD GAS BASE EXCESS -1.2 (-2-2); ARTERIAL BLOOD GAS PCO2 32.5 mmHg (35-45); ARTERIAL BLOOD GAS pH 7.45 (7.35-7.45)
[2021-05-20 05:47] LABS: MEAN CELL VOLUME 92 fl (80.0-100.0); MEAN CORPUSCULAR HGB CONC 32 g/dl (33.0-37.0); MEAN PLATELET VOLUME 10.7 fl (7.4-10.4); PLATELET COUNT 330 K/mm3 (130-400); RED BLOOD COUNT 3.19 M/mm3 (4.10-5.30); REDCELL DISTRIBUTION WIDTH-CV 13.6 % (11.5-14.5)
[2021-05-20 05:48] LABS: HEMATOCRIT 29.2 % (37.0-47.0); HEMOGLOBIN 9.4 g/dl (12.5-16.0); MEAN CORPUSCULAR HEMOGLOBIN 29 pg (27.0-31.0)
[2021-05-20 06:03] LABS: C-REACTIVE PROTEIN 2.1 mg/dL (0.00-0.50); CALCIUM 9.1 mg/dL (8.4-10.2); CREATININE, serum 0.63 mg/dL (0.57-1.11); POTASSIUM 3.4 mmol/L (3.5-4.5)
--- NOTE | 2021-05-20 09:55 | NUR ---
EXTUBATED TO 5 L OXYMASK 90%. RN BESIDE
--- NOTE | 2021-05-20 10:38 | NUR ---
PLACED PT ON AIRVO 70% 50l SPO2 93%. RN BESIDE
--- NOTE | 2021-05-20 10:45 | NUR ---
Pt extubated at 0855 to 12L/min oxymask - maintaining SpO2 88-92% 1030 pt placed on AirVo per MD Orion - SpO2 90-93% with unlabored breathing and respiratory rate 20-25/min
[2021-05-20 13:17] LABS: ARTERIAL BLOOD GAS BASE EXCESS -5.1 (-2-2); ARTERIAL BLOOD GAS HCO3 17.2 meq/L (22-26); ARTERIAL BLOOD GAS PCO2 24.3 mmHg (35-45); ARTERIAL BLOOD GAS PO2 174.7 mmHg (80-100); ARTERIAL BLOOD GAS pH 7.47 (7.35-7.45)
[2021-05-21] VITALS (700 sets, daily range): BP systolic 133–161; BP diastolic 82–90; PULSE 77–111; TEMP 97.9–98.7; O2SAT 74–100
[2021-05-21 04:31] LABS: MEAN CELL VOLUME 89 fl (80.0-100.0); MEAN CORPUSCULAR HGB CONC 33 g/dl (33.0-37.0); MEAN PLATELET VOLUME 10.6 fl (7.4-10.4); PLATELET COUNT 363 K/mm3 (130-400); RED BLOOD COUNT 3.34 M/mm3 (4.10-5.30)
[2021-05-21 04:40] LABS: ARTERIAL BLD GAS O2 SATURATION 96.8 % (92-100); ARTERIAL BLD GAS TCO2 CT 19.8; ARTERIAL BLOOD GAS BASE EXCESS -2.8 (-2-2); ARTERIAL BLOOD GAS HCO3 19.1 meq/L (22-26); ARTERIAL BLOOD GAS PCO2 24.9 mmHg (35-45); ARTERIAL BLOOD GAS PO2 84.9 mmHg (80-100)
[2021-05-21 04:41] LABS: HEMATOCRIT 29.6 % (37.0-47.0); HEMOGLOBIN 9.7 g/dl (12.5-16.0); MEAN CORPUSCULAR HEMOGLOBIN 29 pg (27.0-31.0)
[2021-05-21 05:04] LABS: ALBUMIN 2.5 gm/dL (3.5-5.0); BILIRUBIN,TOTAL 0.7 mg/dL (0.2-1.2); C-REACTIVE PROTEIN 3.2 mg/dL (0.00-0.50); CALCIUM 9.7 mg/dL (8.4-10.2); CREATININE, serum 0.64 mg/dL (0.57-1.11); POTASSIUM 3.4 mmol/L (3.5-4.5); TOTAL PROTEIN 7.2 gm/dL (6.2-8.1)
[2021-05-21 05:41] LABS: BAND 1 % (0-10); EOSINOPHIL 1 % (0-4); HYPOCHROMIA 1+; LYMPHOCYTE 16 % (20.0-51.0); NEUTROPHILS 80 % (42.0-75.2); PLATELET ESTIMATE NORMAL (NORMAL)
[2021-05-21 13:29] LABS: CLOSTRIDIUM DIFF A/B NEG; CLOSTRIDIUM DIFF A/B INTERP No C.diff present
[2021-05-22] VITALS (524 sets, daily range): BP systolic 128–158; BP diastolic 65–92; PULSE 79–119; TEMP 97.9–98.5; O2SAT 74–100
--- NOTE | 2021-05-22 00:53 | NUR ---
PATIENT NOTED TO CONTINUE TO MAINTAIN OXYGEN SATS IN HIGH 90'S TO 100% ON 8 LPM HIGH FLOW NC WHICH SHE WAS PLACED ON BY RT AT 2100, TITRATED SETTING DOWN TO 4LPM HIGH FLOW NC AT THIS TIME AND PATIENT TOLERATING WITHOUT DIFFICULTY, PATIENT HAS DOZED FOR PERIODS OF TIME, NOTED SHE IS NOISE SENSITIVE AND THE SLIGHTEST MOVEMENT/NOISE AWAKENS HER
[2021-05-22 05:15] LABS: MEAN CELL VOLUME 88 fl (80.0-100.0); MEAN CORPUSCULAR HGB CONC 33 g/dl (33.0-37.0); MEAN PLATELET VOLUME 10.3 fl (7.4-10.4); PLATELET COUNT 345 K/mm3 (130-400); RED BLOOD COUNT 3.32 M/mm3 (4.10-5.30); REDCELL DISTRIBUTION WIDTH-CV 13.9 % (11.5-14.5)
[2021-05-22 05:19] LABS: HEMATOCRIT 29.1 % (37.0-47.0); HEMOGLOBIN 9.6 g/dl (12.5-16.0); MEAN CORPUSCULAR HEMOGLOBIN 29 pg (27.0-31.0)
[2021-05-22 05:31] LABS: CALCIUM 9.8 mg/dL (8.4-10.2); CREATININE, serum 0.62 mg/dL (0.57-1.11); MAGNESIUM 2.2 mg/dL (1.6-2.6); POTASSIUM 3.3 mmol/L (3.5-4.5)
[2021-05-22 05:38] LABS: BAND 2 % (0-10); LYMPHOCYTE 14 % (20.0-51.0); METAMYELOCYTE 2 % (0-0); MYELOCYTE 1 % (0-0); NEUTROPHILS 76 % (42.0-75.2); PLATELET ESTIMATE NORMAL (NORMAL)
--- NOTE | 2021-05-22 06:10 | NUR ---
PATIENT ASSISTED UP TO RECLINER CHAIR WITH TWO ASSIST FOR SAFTEY WITH USE OF GAIT BELT, NOTED THAT PATIENT OXYGEN SATURATIONS DECREASED INTO 80'S AND REQUIRED INCREASE OF O2 TO 8LPM VIA HFNC.
--- NOTE | 2021-05-22 16:00 | NUR ---
Pt tolerated rectal tube removal well, pericare provided while pt stood in place using walker.
--- NOTE | 2021-05-22 16:27 | NUR ---
Pt tolerated transfer from ICU to Medical well. All belongings with pt. Recieved by LUCAS Franco.
--- NOTE | 2021-05-22 18:14 | NUR ---
Pt arrived to room 311, she is A/O x4. Her breathing is even and unlabored on 8L o2 via HF. Pt does feel weak and slightly SOB with any exertion. Pt denies any pain at this time. Willy MARIANO. PICC to CLIFF. POC discussed with patient who verbalizes understanding. Pt sitting up in the recliner at this time. Has no further needs. Call light within reach.
--- NOTE | 2021-05-22 23:45 | NUR ---
PT SLEEPING UPON ENTRY, PT ALERT AND ORIENTED. CLEAR LUNGS AUSCULTATED. S1,S2 HEART SOUNDS AUSCULTATED. PT STATES FEELING TIRED AND READY TO SLEEP. PT HAS GENERALIZE BRUISING IN UPPER ARMS BILATERALLY. PT HAS COOL FEET, CAP REFILL <3S AND DORSALIS PEDIS AND POSTERIOR TIBIAL PULSES 2+ BILATERALLY. PT HAS 1+ EDEMA IN LEGS BILATERALLY. CALL LIGHT WITHIN REACH, NO OTHER NEEDS AT THIS TIME.
[2021-05-23 04:19] VITALS: BP 128/71; PULSE 87; TEMP 98
--- NOTE | 2021-05-23 05:13 | NUR ---
PT CONTINUING ON PLAN OF CARE. PT VITAL SIGNS REMAINED STABLE THIS SHIFT. PT EXPRESSED BEING TIRED DURING ASSESSMENT, PT REPORTS BEING ABLE TO SLEEP OVERNIGHT. PT DENIED PAIN THIS SHIFT. PT FREE FROM INJURY. NO OTHER NEEDS AT THIS TIME.
[2021-05-23 07:21] LABS: MEAN CELL VOLUME 87 fl (80.0-100.0); MEAN CORPUSCULAR HGB CONC 33 g/dl (33.0-37.0); MEAN PLATELET VOLUME 10.8 fl (7.4-10.4); PLATELET COUNT 309 K/mm3 (130-400); RED BLOOD COUNT 3.25 M/mm3 (4.10-5.30); REDCELL DISTRIBUTION WIDTH-CV 13.9 % (11.5-14.5)
[2021-05-23 07:37] LABS: HEMATOCRIT 28.2 % (37.0-47.0); HEMOGLOBIN 9.4 g/dl (12.5-16.0); MEAN CORPUSCULAR HEMOGLOBIN 29 pg (27.0-31.0)
[2021-05-23 07:48] LABS: CALCIUM 9.5 mg/dL (8.4-10.2); CREATININE, serum 0.6 mg/dL (0.57-1.11); MAGNESIUM 2.1 mg/dL (1.6-2.6); POTASSIUM 3.1 mmol/L (3.5-4.5)
[2021-05-23 08:01] VITALS: BP 145/95; PULSE 98; TEMP 98.6
[2021-05-23 08:06] LABS: BAND 2 % (0-10); EOSINOPHIL 2 % (0-4); LYMPHOCYTE 16 % (20.0-51.0); MYELOCYTE 1 % (0-0); NEUTROPHILS 76 % (42.0-75.2); PLATELET ESTIMATE NORMAL (NORMAL)
--- NOTE | 2021-05-23 09:16 | NUR ---
Assessment charted. Pt doing well, up in bed eating breakfast. 02 at 7L HFNC and doing well. denies pain. wants to get up and get moving for recovery purproses, will address dc rosa catheter today. Denies needs, will continue to monitor.
[2021-05-23 11:54] VITALS: BP 135/81; PULSE 92; TEMP 97.9
--- NOTE | 2021-05-23 13:35 | NUR ---
Patient was extubated over the weekend. Patient is currently on 6 liters of oxygen. AILYN faxed updates to Yaniv at [facility] and also called with a verbal update. Hospitalist is putting in screen for IPR now that patient is extubated . Aline, IPR Director notified and given referral. Discharge Plan: Pending IPR Screen
[2021-05-23 15:51] VITALS: BP 135/76; PULSE 95; TEMP 97.8
--- NOTE | 2021-05-23 18:26 | NUR ---
Pt has done well todya, up to shower, water was cold, work order filed, otherwise pt doing very well, still requiring 8L O2 but otherwise maintaining saturations. Will continue to monitor and quality assurance supervisor final eport to nightshift nurse who will reusme care.
[2021-05-23 19:04] VITALS: BP 132/78; PULSE 110; TEMP 97.6
--- NOTE | 2021-05-23 21:24 | NUR ---
Patient alert and oriented. Patient denies any pain or discomfort. Patient currently on 8L oxygen via HF. Patient denies SOB or dyspnea while at rest. Breathing even and unlabored. VS stable. Patient ambulates to the bathroom with a walker to void. 1 assist needed for transfer and ambulation. Call light in reach. Will continue to monitor.
[2021-05-23 22:59] VITALS: BP 137/83; PULSE 85; TEMP 98.2
[2021-05-24 03:01] VITALS: BP 139/71; PULSE 91; TEMP 98.4
[2021-05-24 07:40] VITALS: BP 155/68; PULSE 96; TEMP 98.2
--- NOTE | 2021-05-24 08:01 | NUR ---
Pt assessment complete, pt sitting up in bed eating breakfast upon entry. She is A/O x4. Her breathing is even and unlabored on 8L O2 via NC, reports some mild SOB with exertion but feels she is recovering faster. She denies any pain. No N/V/D. No needs at this time. Call light within reach.
[2021-05-24] MEDS ORDERED: ERAXIS100 MG IV (11:32)
[2021-05-24] MEDS ORDERED: IPRATROPIUM BROM3 M1 IH ×2 (11:32→11:33)
[2021-05-24] MEDS ORDERED: TOPROL XL 50MG50 MG PO (11:37)
[2021-05-24] MEDS ORDERED: ASPIRIN E.C. 8181 MG PO (11:37)
[2021-05-24] MEDS ORDERED: DECADRON 4MG TAB4 MG PO (11:38)
[2021-05-24] MEDS ORDERED: K-DUR20 MEQ PO (11:42)
[2021-05-24 11:44] VITALS: BP 155/68; PULSE 96; TEMP 98.2
--- NOTE | 2021-05-24 12:20 | NUR ---
Patient to discharge to [facility] today.
[2021-05-24 12:49] VITALS: BP 130/73; PULSE 101; TEMP 98.4
--- NOTE | 2021-05-24 13:17 | NUR ---
Report given to LUCAS Sen. Pt wheeled to [facility] room 340 at this time.
== END 2021-05-24 13:17 | DRG 207 ==
LOC: ICU 19:48 → MEDICAL 05-22 16:37
PROVIDERS: Internal Medicine Pulmonary Disease; Nurse Practitioner Family; ADMIT Internal Medicine
PROC: 5A1955Z Respiratory Ventilation, Greater than 96 Consecutive Hours (ICD-10-PCS; principal; 2021-05-07)
PROC: 0BH17EZ Insertion of Endotracheal Airway into Trachea, Via Natural or Artificial Opening (ICD-10-PCS; 2021-05-07)
PROC: XW033E5 Introduction of Remdesivir Anti-infective into Peripheral Vein, Percutaneous Approach, New Technology Group 5 (ICD-10-PCS; 2021-05-07)
PROC: 02HV33Z Insertion of Infusion Device into Superior Vena Cava, Percutaneous Approach (ICD-10-PCS; 2021-05-17)
DX: U07.1 COVID-19 (principal); J12.82 Pneumonia due to coronavirus disease 2019; J96.01 Acute respiratory failure with hypoxia; I21.4 Non-ST elevation (NSTEMI) myocardial infarction; E87.3 Alkalosis; E87.2 Acidosis; I42.0 Dilated cardiomyopathy; I50.20 Unspecified systolic (congestive) heart failure; K21.9 Gastro-esophageal reflux disease without esophagitis; E78.5 Hyperlipidemia, unspecified; Z79.82 Long term (current) use of aspirin; I44.7 Left bundle-branch block, unspecified; E87.6 Hypokalemia; Z73.0 Burn-out; R34 Anuria and oliguria
CPT/HCPCS: 99223-AI; 99233-AI; 99239; C1751; C1769; J0348; J1100; J1644; J1650; J1815; J1940; J2250; J2543; J2704; J3010; J3480; J7050; J7120; J8540

== ENCOUNTER 2021-05-24 13:30 | Inpatient (IN) | payer OTHER ==
[~2021-05-24] VITALS: Ht 170.2 cm; Wt 66.9 kg
[~2021-05-24 13:30] MED LIST: ASPIRIN E.C. 8181 MG PO; DECADRON 4MG TAB4 MG PO; ERAXIS100 MG IV; IPRATROPIUM BROM3 M1 IH; K-DUR20 MEQ PO; PROTONIX 40MG T40 MG PO; TOPROL XL 50MG50 MG PO; ZOCOR 40MG40 MG PO
[2021-05-24 17:00] VITALS: BP 141/78; PULSE 95; TEMP 97.6
--- NOTE | 2021-05-24 22:26 | NUR ---
Patient assessed. Denies having pain and discomfort. Reports SOB with exertion, denies at rest. On oxygen at 7 L/min via NC. LS CTA in upper lobes, diminished in lower. Respirations even and unlabored. HRR. Capillary refill less than 3 seconds. Non-tenting skin turgor. BSAx4. Abdomen soft and non-tender. 1+ edema BLE. Patient voices no questions, needs, or concerns at this time. Resting in bed with call light within reach.
[2021-05-25 05:37] VITALS: BP 124/65; PULSE 94; TEMP 98.4
--- NOTE | 2021-05-25 05:44 | NUR ---
Patient continues on oyxgen at 7 L/min via NC. Voices no questions, needs, or concerns at this time. Resting in bed with call light within reach.
--- NOTE | 2021-05-25 12:44 | NUR ---
AILYN met with the patient to complete intake, as the patient is new to [facility]. The patient lives in [place] with her , Raul (ph#[phone]). She reports independence with ADLs and does not have any DME. She states that her is planning on getting her a walker at their local pharmacy. The patient's PCP is Dr. Brenda Madrid in [place] and she receives her medications from [facility] in [place]. She reports no difficulties obtaining her meds. The patient does not have a DPOA-HC and she was not interested in completing one at this time. The patient is currently requiring 6 liters of oxygen. SW to continue to monitor. AILYN also presented and reviewed the IPR Team Conference Note with the patient. The therapists are making their first evals today and plan to re-eval the patient next Sunday. The patient was in agreement to the plan.
[2021-05-25 16:33] VITALS: BP 149/72; PULSE 106; TEMP 97.5
--- NOTE | 2021-05-25 18:32 | NUR ---
RECEIVED CHANGE OF SHIFT REPORT FROM DAY SHIFT NURSE.
--- NOTE | 2021-05-25 18:45 | NUR ---
UP IN RECLINER WITH EXIT ALARM ON. CALL LIGHT WITHIN REACH. DENIED ANY NEEDS DURING SHIFT CHANGE REPORT. OXYGEN CONTINUES PER NASAL CANNULA.
[2021-05-26 05:10] VITALS: BP 122/62; PULSE 96; TEMP 98
--- NOTE | 2021-05-26 06:45 | NUR ---
Received report from LUCAS Snow. Patient is up and sitting on side of bed. Patient denies pain at this time. Will continue to monitor patient throughout shift.
--- NOTE | 2021-05-26 07:19 | NUR ---
CHANGE OF SHIFT REPORT GIVEN TO DAY SHIFT NURSE, MANJINDER ZAVALA.
--- NOTE | 2021-05-26 07:45 | NUR ---
Patient c/o dry nose and scabs in her nose that hurt. Patient states she can feel "crud" in her nose and asked if she could use Neosporin. This nurse told patient she would find the best course of action to take. Call light and bedside table are within reach.
--- NOTE | 2021-05-26 15:00 | NUR ---
Patient has completed all therapies for the day and is resting in bed. Patient denies pain at this time. is at bedside. Call light and bedside table are within reach.
--- NOTE | 2021-05-26 15:49 | NUR ---
This nurse verified with JONES Baez and patient is AC/HS for blood sugar monitoring.
[2021-05-26 16:08] VITALS: BP 135/70; PULSE 105; TEMP 98.2
--- NOTE | 2021-05-26 17:45 | NUR ---
When this nurse asked patient when her last BM she stated it had been too long for her to even remember. This nurse try to persuade the patient to take something but she declined.
--- NOTE | 2021-05-26 19:50 | NUR ---
PT SITTING IN RECLINER. WATCHING TV. O2 1L NC. NO RESP DISTRESS AT THIS TIME. PT RELATES DOES HAS SOME DYSPNEA WITH ACTIVITY. SPEECH IS HOARSE. PT REPORTS SOME CONSTIPATION. AGREED TO COLACE AND APPLE JUICE TONIGHT. DENIES PAIN. CALL LIGHT IN REACH. CHAIR ALARM SET.
[2021-05-27 05:27] VITALS: BP 114/62; PULSE 100; TEMP 97.8
--- NOTE | 2021-05-27 14:24 | NUR ---
Admission QIM scores were reviewed by the team. Code of 4 chosen for oral hygiene was determined by team discussion to be the most usual performance before interventions for this patient during the assessment period. Code of 3 chosen for toilet hygiene was determined by team discussion to be the most usual performance for this patient during the assessment period. Code of 3 chosen for toileting transfers was determined by team discussion to be the most usual performance for this patient during the assessment period. Code of 4 chosen for shower/bathe self was determined by team discussion to be the most usual performance for this patient during the assessment period. Code of 4 chosen for upper body dressing was determined by team discussion to be the most usual performance for this patient during the assessment period. Code of 4 chosen for lower body dressing was determined by team discussion to be the most usual performance for this patient during the assessment period. Code of 3 for sit to stand was determined by team discussion to be the most usual performance for this patient during the assessment period. Code of 3 for chair/bed to chair transfers was determined by team discussion to be the most usual performance for this patient during the assessment period. Code of 3 chosen for walk 10 feet was determined by team discussion to be the most usual performance for this patient during the assessment period. Code of 3 chosen for walk 50 feet w/ 2 turns was determined by team discussion to be the most usual performance for this patient during the assessment period.--PD Lizz
[2021-05-27 16:05] VITALS: BP 121/70; PULSE 99; TEMP 98.5
--- NOTE | 2021-05-27 16:23 | NUR ---
SW attempted to meet with the patient to follow up before the weekend and discuss setting up a patient/family meeting. The patient was sound asleep. SW to continue to follow.
--- NOTE | 2021-05-27 18:00 | NUR ---
Patient did well today. No complaints of pain. She sat up in the chair most the day. She was hoping to get off the oxygen today but is still requiring it. No complaints of nausea. She ate what she could but she was not happy with the food today. No other changes at this time. Call light within reach.
--- NOTE | 2021-05-27 19:48 | NUR ---
ASSISTED AMB IN CROUCH WITH PT. ON O2 5L PER NC. SLOANE WELL. AMB 50FT AND BACK TO ROOM. NOTED RENESS IN GLUTEAL CREASE. BARRIER OINTMENT APPLIED. SOFT CUSHION TO RECLINER. CHAIR ALARM SET. CALL LIGHT IN REACH.
[2021-05-28 04:31] VITALS: BP 126/69; PULSE 83; TEMP 97.6
--- NOTE | 2021-05-28 07:02 | NUR ---
Receive report from LUCAS Walker. Patient is in bed and waiting on breakfast. Patient denies pain at this time. Call light and bedside table are within reach. Will continue to monitor patient throughout shift.
--- NOTE | 2021-05-28 12:00 | NUR ---
Patient has finished all therapies and is resting in the recliner. Patient denies pain. Call light and bedside table are within reach.
[2021-05-28 16:35] VITALS: BP 122/74; PULSE 104; TEMP 97.6
--- NOTE | 2021-05-28 21:02 | NUR ---
PT SITTING IN RECLINER. WATCHING TV. NO NEEDS AT THIS TIME. O2 3LNC NO RESP DISTRESS. NO COUGHING NOTED. CALL LIGHT IN REACH. CHAIR ALARM SET.
[2021-05-29 04:35] VITALS: BP 119/68; PULSE 89; TEMP 97.6
--- NOTE | 2021-05-29 07:00 | NUR ---
Report received from LUCAS Walker. Pt in bed resting, deneies needs, will conitnue ot monitor.
[2021-05-29 16:55] VITALS: BP 134/80; PULSE 103; TEMP 97.9
--- NOTE | 2021-05-29 18:23 | NUR ---
PT has done well over shift. Resting in chair at side bed, denies needs, has been up ambulating around hallways with staff. Denies pain, will continue to monitor and give report to nightshift nurse who will resume care.
[2021-05-30 06:20] VITALS: BP 129/65; PULSE 95; TEMP 97.7
--- NOTE | 2021-05-30 07:41 | NUR ---
Patient is resting in bed and denies pain at this time. Call light and bedside table are within reach. Will continue to monitor patient throughout shift.
[2021-05-30 08:22] VITALS: BP 124/66; PULSE 107; TEMP 98.2
[2021-05-30 09:04] LABS: MEAN CELL VOLUME 92 fl (80.0-100.0); MEAN CORPUSCULAR HGB CONC 32 g/dl (33.0-37.0); MEAN PLATELET VOLUME 10.4 fl (7.4-10.4); PLATELET COUNT 421 K/mm3 (130-400); RED BLOOD COUNT 3.14 M/mm3 (4.10-5.30); REDCELL DISTRIBUTION WIDTH-CV 15.4 % (11.5-14.5)
[2021-05-30 09:06] LABS: HEMOGLOBIN 9.3 g/dl (12.5-16.0); MEAN CORPUSCULAR HEMOGLOBIN 30 pg (27.0-31.0)
[2021-05-30 09:25] LABS: CALCIUM 9.7 mg/dL (8.4-10.2); CREATININE, serum 0.59 mg/dL (0.57-1.11); MAGNESIUM 1.9 mg/dL (1.6-2.6); POTASSIUM 3.5 mmol/L (3.5-4.5)
[2021-05-30 09:56] LABS: BAND 3 % (0-10); EOSINOPHIL 2 % (0-4); LYMPHOCYTE 28 % (20.0-51.0); MYELOCYTE 1 % (0-0); NEUTROPHILS 61 % (42.0-75.2)
[2021-05-30 09:57] LABS: PLATELET ESTIMATE NORMAL (NORMAL)
--- NOTE | 2021-05-30 14:55 | NUR ---
Director Information Security contacted patient's , Raul and scheduled family meeting for Sunday at 1300. SW then met with patient to check in and provide date/time for family meeting.
--- NOTE | 2021-05-30 19:30 | NUR ---
RECEIVED CHANGE OF SHIFT REPORT FROM DAY SHIFT NURSE. PATIENT UP IN CHAIR, EXIT ALARM IN PLACE WHILE UP IN CHAIR. CALL LIGHT WITHIN REACH.
[2021-05-30 19:40] VITALS: BP 129/74; PULSE 106; TEMP 97.5
[2021-05-31 05:37] VITALS: BP 125/67; PULSE 91; TEMP 98.5
--- NOTE | 2021-05-31 07:28 | NUR ---
CHANGE OF SHIFT REPORT GIVEN TO DAY SHIFT NURSE, SEAN ZAVALA.
[2021-05-31 08:43] VITALS: BP 120/71; PULSE 108; TEMP 97.7
[2021-05-31 17:26] VITALS: BP 120/68; PULSE 105; TEMP 98.2
--- NOTE | 2021-06-01 00:51 | NUR ---
PATIENT SLEEPING, DOES NOT WAKE WHEN DOOR TO ROOM IS OPENED BY STAFF NURSE ON ROUNDS. BREATHING NONLABORED AND EVEN. CALL LIGHT WITHIN REACH.
[2021-06-01 04:54] VITALS: BP 137/73; PULSE 90; TEMP 97.9
--- NOTE | 2021-06-01 07:03 | NUR ---
CHANGE OF SHIFT REPORT GIVEN TO DAY SHIFT NURSE, MANJINDER ZAVALA.
--- NOTE | 2021-06-01 16:22 | NUR ---
Electrical Wiring Lineman attended patient/family meeting which included patient's , Raul who is at bedside. SANTHOSH Mireles Director opened the meeting to explain it's purpose then PT/OT/ST reviewed patient's progress and discharge needs. SW advised patient and her , Raul that discharge date is set for Sunday and Home Health is recommended. Patient would like to utilize [facility], which is where she is employed. Patient will also likely need home oxygen which SW will assist with. Patient inquired if [facility] provides home oxgyen. SW to follow up. SW also provided patient a copy of team conference notes. SW contacted Shelia at [facility] and faxed referral. SW also contacted [facility] and they don't provide oxygen. AILYN will follow up on a different DME provider.
[2021-06-01 16:43] VITALS: BP 133/70; PULSE 95; TEMP 97.7
--- NOTE | 2021-06-01 18:11 | NUR ---
Received report from LUCAS Snow. Patient is resting comfortably in bed and denies pain at this time. Call light and bedside table are within reach. Will continue to monitor patient throughout shift.
--- NOTE | 2021-06-01 21:51 | NUR ---
AMB IN CROUCH TONIGHT WITH O2 1L NC SLOANE WELL.
[2021-06-02 05:33] VITALS: BP 126/64; PULSE 95; TEMP 97.9
--- NOTE | 2021-06-02 12:07 | NUR ---
Patient needing 4L when ambulating, but stayed 91% when one room air sitting down.
--- NOTE | 2021-06-02 14:41 | NUR ---
Desk Reporter provided handicap placard application which was signed by the physician to patient. SW also advised patient that [facility] does not provide home oxygen. Patient is agreeable to [facility] and if for some reason they cannot provide oxygen, she's also agreeable to [facility]. This was reviewed with patient's who is on speakerphone. AILYN contacted Chivo at [facility] and sent him referral and orders for home oxgyen.
[2021-06-02 16:22] VITALS: BP 123/68; PULSE 102; TEMP 97.8
--- NOTE | 2021-06-02 20:43 | NUR ---
PT SITTING IN RECLINER. NO NEEDS. O2 1L NC. NO RESP DISTRESS.
[2021-06-02] MEDS ORDERED: PROAIR HFA0.09 MG/AC IH (21:47)
[2021-06-02] MEDS ORDERED: DEEP SEA 45 ML45 ML NS (21:48)
[2021-06-02] MEDS ORDERED: DECADRON 1MG TAB1 MG PO (21:48)
[2021-06-02] MEDS ORDERED: TOPROL XL 50MG50 MG PO (21:49)
[2021-06-02] MEDS ORDERED: K-TAB20 PO (21:55)
[2021-06-03 05:30] VITALS: BP 122/55; PULSE 100; TEMP 98.4
--- NOTE | 2021-06-03 12:10 | NUR ---
PT DISCHARGED HOME ON STABLE CONDITION. D/C INSTRUCTIONS, MEDICATION AND FOLLOW UP REVEIWED PT QUESTIONS AND CONCERNS ADDRESSED. PT ESCORTED TO MAIN ENTRACE EXIT ALL PERSONAL BELONONGS SENT WITH PT
--- NOTE | 2021-06-03 16:14 | NUR ---
Administrative Support Manager contacted Katie at [facility] who advised due to patient's liter flow, their home system will have to be set up today. Katie advised they will need to do the set up at 1300. AILYN coordinated with patient's Raul, RN, and Hospitalist to make arrangements for patient to discharge around noon so she can be home by 1300 for oxygen set up. AILYN contacted Gissell at [facility] and faxed discharge orders.
== END 2021-06-03 12:20 | disposition home health service (06) | DRG 91 ==
PROVIDERS: ADMIT Internal Medicine
DX: G72.81 Critical illness myopathy (principal); U07.1 COVID-19; J12.82 Pneumonia due to coronavirus disease 2019; B37.1 Pulmonary candidiasis; J96.01 Acute respiratory failure with hypoxia; I21.4 Non-ST elevation (NSTEMI) myocardial infarction; J16.8 Pneumonia due to other specified infectious organisms; I50.22 Chronic systolic (congestive) heart failure; E87.3 Alkalosis; R26.89 Other abnormalities of gait and mobility; E87.6 Hypokalemia; E78.5 Hyperlipidemia, unspecified; K21.9 Gastro-esophageal reflux disease without esophagitis; Z73.6 Limitation of activities due to disability; Z79.899 Other long term (current) drug therapy; Z79.82 Long term (current) use of aspirin
CPT/HCPCS: 99222-AI; 99232-AI; 99239; J0348; J1650; J8540